=== PATIENT | female | born 1990 | race Caucasian/White ===

== ENCOUNTER 2019-10-16 23:00 | Emergency (ER) | payer MEDICAID ==
[~2019-10-16] VITALS: Ht 154.9 cm; Wt 72.6 kg
[2019-10-16 23:10] VITALS: BP_SYST 134
[2019-10-17] MEDS ORDERED: KETOROLAC TROMETHAMINE 60 MG/2 ML VIAL IM ONE (01:00)
[2019-10-17 03:25] VITALS: BP_SYST 129
== END 2019-10-17 03:25 ==
LOC: SED 23:00
DX: S53.401A Unspecified sprain of right elbow, initial encounter (principal); S09.90XA Unspecified injury of head, initial encounter; W50.3XXA Accidental bite by another person, initial encounter; Y93.89 Activity, other specified; Y92.89 Other specified places as the place of occurrence of the external cause; Y99.8 Other external cause status
CPT/HCPCS: 70450; 70486; 72125; 73080; 96372; 99285; J1885

== ENCOUNTER 2020-01-19 12:55 | Emergency (ER) | payer MEDICAID ==
[~2020-01-19] VITALS: Ht 154.9 cm; Wt 81.6 kg
[2020-01-19 13:04] VITALS: BP_SYST 112
--- NOTE | 2020-01-19 13:13 | NUR ---
Patient to ER bed 8 to gown for evaluation. Side rails up. Report given to Brown AGOSTO .
--- NOTE | 2020-01-19 13:19 | NUR ---
Pt came to ER for abscess on her R buttock, presents red and swollen painful on touch. Resting in gurney, no distress, evaluating.
--- NOTE | 2020-01-19 13:19 | NUR ---
ER at bedside examining patient.
[2020-01-19] MEDS ORDERED: MORPHINE SULFATE 10 MG/ML VIAL IM ONE (13:30)
--- NOTE | 2020-01-19 13:45 | NUR ---
SS notes: TALK SHOW HOST received a referral for a request of advanced directive. TALK SHOW HOST attempted to meet with patient, MD was in the room. TALK SHOW HOST left advanced directive/POLST to charge nurse to give to patient. TALK SHOW HOST will try to meet with her again.
--- NOTE | 2020-01-19 14:07 | NUR ---
Patient given written and verbal discharge instructions and verbalizes understanding. ER MD discussed with patient the results and treatment provided. Patient in stable condition. ID arm band removed. Rx of Clindamycin given. Patient educated on pain management and to follow up with PMD. Pain Scale 3/10. Opportunity for questions provided and answered. Medication side effect fact sheet provided.
[2020-01-19 14:12] VITALS: BP_SYST 112
[2020-01-19] MEDS ORDERED: BACITRACIN 1 GM OINT TP ONE (14:13)
== END 2020-01-19 14:07 | disposition home or self-care (01) ==
LOC: SED 12:55
DX: L03.317 Cellulitis of buttock (principal)
CPT/HCPCS: 10060; 96372; 99284; J2270; 99283